=== PATIENT | male | born 2000 | race Asian ===

== ENCOUNTER 2024-09-04 04:28 | Day surgery (SDC) | payer OTHER ==
[2024-09-01 15:43] VITALS: BMI 35.6
[2024-09-04] MEDS ORDERED: ONDANSETRON 4 MG/2 ML VIAL IVPUSH PRN (12:41)
[2024-09-04] MEDS ORDERED: LACTATED RINGERS SOLUTION 1,000 ML IV SCH (12:45)
[2024-09-04] MEDS ORDERED: PROPOFOL 20 ML ONE ×2 (12:54→14:10)
[2024-09-04] MEDS ORDERED: LIDOCAINE HCL/PF 2% SDV 5ML VIAL ONE ×2 (12:54→14:11)
[2024-09-04] MEDS ORDERED: MIDAZOLAM HCL 2 MG/2 ML SINGLE DOSE VIAL ONE (12:54)
[2024-09-04] MEDS ORDERED: ONDANSETRON 4 MG/2 ML VIAL ONE (12:54)
[2024-09-04] MEDS: ceFAZolin SODIUM 1 GM VIAL IVPB ONE (14:06)
[2024-09-04] MEDS ORDERED: DEXAMETHASONE SOD PHOSPHATE 4 MG/1 ML VIAL ONE (14:11)
[2024-09-04] MEDS ORDERED: LIDOCAINE HCL 2% JELLY 11 ML TP ONE (14:13)
[2024-09-04 15:11] VITALS: TEMP 97.2
[2024-09-04] MEDS ORDERED: ACETAMINOPHEN INJECTION 100 ML ONE (15:17)
[2024-09-04] MEDS: ACETAMINOPHEN 1000 MG/100 ML BAG IVPB ONE (15:29)
[2024-09-04] MEDS: oxyCODONE HCL 5 MG TABLET PO ONE (16:05)
[2024-09-04 17:27] VITALS: BP 107/54; PULSE 57; RESP 20
== END 2024-09-04 17:11 | disposition home or self-care (01) ==
LOC: JASU-SURG 04:28
PROVIDERS: ATTEND Urology
PROC: 0T7D8ZZ Dilation of Urethra, Via Natural or Artificial Opening Endoscopic (ICD-10-PCS; principal; 2024-09-04 13:00)
DX: N35.919 Unspecified urethral stricture, male, unspecified site (principal)
CPT/HCPCS: 94760; J0131